=== PATIENT | male | born 1965 | race Caucasian/White ===

== ENCOUNTER 2017-04-03 00:43 | Emergency (ER) | payer OTHER ==
[~2017-04-03] VITALS: Ht 170.2 cm; Wt 95.3 kg
[2017-04-03] MEDS ORDERED: PERCOCET 5-3251 EACH PO (02:49)
[2017-04-03] MEDS ORDERED: CLEOCIN HCL150 MG PO (02:49)
[2017-04-03 03:08] LABS: ABSOLUTE NEUTROPHILS 4.1 thou/uL (1.4-8.2); BASOPHILS 0.4 % (0.0-2.0); EOSINOPHILS 2.9 % (0.0-3.0); HEMATOCRIT 47.2 % (42.0-52.0); HEMOGLOBIN 15.9 gm/dL (14.0-18.0); LYMPHOCYTES 31.9 % (24.0-44.0); MCH 29.4 pg (26.0-34.0); MCHC 33.7 g/dL (28.0-37.0); MCV 87.2 fL (80.0-100.0); MONOCYTES 10.5 % (1.0-8.0); PLATELET COUNT 226 thou/uL (150-400); POLYS 54.3 % (36.0-66.0); RBC 5.41 mil/uL (4.50-6.00); RDW 14.3 % (10.5-14.5); WBC 7.5 thou/uL (4.0-11.0)
[2017-04-03 03:09] LABS: MANUAL DIFF NO
[2017-04-03 03:16] LABS: ANION GAP 8 mmol/L (7-16); BUN 16 mg/dL (7-18); CALCIUM 8.8 mg/dL (8.5-10.1); CHLORIDE 107 mmol/L (98-107); CO2 27 mmol/L (21-32); CREATININE 1.2 mg/dL (0.7-1.3); GLUCOSE 89 mg/dL (74-106); POTASSIUM 3.7 mmol/L (3.5-5.1); SODIUM 142 mmol/L (136-145)
[2017-04-03 03:21] LABS: APTT 26.1 Seconds (24.5-32.8); PROTIME 9.9 Seconds (9.3-11.4)
[2017-04-03 03:23] LABS: ALBUMIN 3.6 g/dL (3.4-5.0); ALKALINE PHOSPHATASE 44 U/L (46-116); SGOT 21 U/L (15-37); SGPT 33 U/L (30-65); TOTAL BILIRUBIN 0.5 mg/dL (<0.1-1.0); TOTAL PROTEIN 7.1 g/dL (6.4-8.2); TROPONIN-I < 0.04 ng/mL (<0.04-0.07)
[2017-04-03 05:25] VITALS: BP 132/76
== END 2017-04-03 05:21 | disposition home or self-care (01) ==
LOC: ER 00:43
PROVIDERS: Emergency Medicine
DX: L03.115 Cellulitis of right lower limb (principal); J45.909 Unspecified asthma, uncomplicated; G47.30 Sleep apnea, unspecified; F17.210 Nicotine dependence, cigarettes, uncomplicated; Z59.0 Homelessness; Z98.1 Arthrodesis status; Z86.718 Personal history of other venous thrombosis and embolism; Z86.14 Personal history of Methicillin resistant Staphylococcus aureus infection